=== PATIENT | female | born 1980 | race Caucasian/White ===

== ENCOUNTER 2020-07-13 08:29 | Day surgery (SDC) | payer MEDICAID ==
[2020-07-06 15:19] LABS: CLARITY,URINE SLIGHTLY CLOUDY (Clear); COLOR,URINE YELLOW (Yellow); GLUCOSE, URINE NEGATIVE (Neg); KETONES,URINE NEGATIVE (Neg); LEUKOCYTE ESTERASE ,URINE NEGATIVE (Neg); NITRITES, URINE NEGATIVE (Neg); OCCULT BLOOD,URINE NEGATIVE (Neg); PROTEIN,URINE NEGATIVE (Neg); UROBILINOGEN,URINE 0.2 E.U/dL (0.2-1.0)
[2020-07-06 15:26] LABS: BASOPHILS # (AUTO) 0.1 X10'3 (0-0.2); BASOPHILS % (AUTO) 0.6 % (0-1); EOSINOPHILS # (AUTO) 0.2 X10'3 (0-0.9); EOSINOPHILS % (AUTO) 1.5 % (0-6); LYMPHOCYTES # (AUTO) 4.1 X10'3 (1.1-4.8); LYMPHOCYTES % (AUTO) 25.5 % (21-51); MEAN CORPUSCULAR HEMOGLOBIN 31.9 PG (27.0-31.0); MEAN CORPUSCULAR HGB CONC 33.7 g/dL (33.0-36.5); MEAN CORPUSCULAR VOLUME 94.7 FL (78-98); MEAN PLATELET VOLUME 8.8 FL (7.4-10.4); MONOCYTES # (AUTO) 1.1 X10'3 (0-0.9); MONOCYTES % (AUTO) 6.8 % (2-12); NEUTROPHILS # (AUTO) 10.6 X10'3 (1.8-7.7); NEUTROPHILS % (AUTO) 65.6 % (42-75); PRE OP HEMATOCRIT 46.4 % (35.0-45.0); PRE OP HEMOGLOBIN 15.6 g/dL (12.0-16.0); PRE OP PLATELET COUNT 249 X10'3 (140-440); RED CELL DISTRIBUTION WIDTH 13.6 % (11.5-14.5)
[2020-07-06 15:30] LABS: UA COLLECTION TYPE CLN CATCH MIDSTREAM
[2020-07-06 15:38] LABS: ALBUMIN 3.9 G/DL (3.4-5.0); ALKALINE PHOSPHATASE 81 IU/L (46-116); BLOOD UREA NITROGEN 15 MG/DL (7-18); BUN/CREATININE RATIO 14.9 (6.6-38.0); CALCIUM 9.5 MG/DL (8.5-10.1); CHLORIDE 104 MMOL/L (99-107); CREATININE 1.01 MG/DL (0.40-0.90); PRE OP ALT 31 U/L (30-65); PRE OP ANION GAP 8 (8-16); PRE OP AST 13 U/L (10-37); PRE OP BILIRUB, TOTAL 0.2 MG/DL (0.0-1.0); PRE OP GLUCOSE 81 MG/DL (70-104); PRE OP POTASSIUM 4.1 MMOL/L (3.4-5.1); PRE OP SODIUM 140 MMOL/L (135-145); TOTAL CARBON DIOXIDE 27.6 MMOL/L (24-32); TOTAL PROTEIN 7.7 G/DL (6.4-8.2); eGFR 61 ML/MIN
[2020-07-06 15:42] LABS: SQUAMOUS EPITHELIAL CELL,UR FEW /LPF (FEW)
[2020-07-06 15:43] LABS: MUCUS STRANDS FEW /LPF (Neg); RBC,URINE NONE SEEN /HPF (0-2); WBC,URINE 0-4 /HPF (0-4)
[2020-07-06 15:45] LABS: HCG SERUM QL NEGATIVE
[2020-07-06 15:47] LABS: BACTERIA,URINE FEW /HPF (Neg)
[~2020-07-13] VITALS: Ht 177.8 cm; Wt 139.6 kg
[2020-07-13] VITALS (15 sets, daily range): BP systolic 95–131; BP diastolic 53–88
[~2020-07-13 08:29] MED LIST: ALBU8HFA PO; BACL20TA2 PO; TYL650S PO; albuterol 2.5 MG/3 ML nebule NEB ONE; ceFOXitin 2GM-NS 100mL ADDvant 100 ML IV ONE; famotidine 20mg tablet PO ONE; ringers solution, lacted 1,000 ML IV SCH
[2020-07-13] MEDS ORDERED: BUPIVAcaine/PF 2.5 mg/ml (0.25%) 30ml vial ONE (09:15)
[2020-07-13] MEDS ORDERED: ipratropium/albuterol 3ml nebule IH STA (09:25)
[2020-07-13] MEDS ORDERED: midazolam 1 mg/ML 2ml injection ONE (09:29)
[2020-07-13] MEDS ORDERED: fentaNYL/PF 50MCG/1 ML 2ML syringe ONE (09:29)
[2020-07-13] MEDS ORDERED: rocuronium 10mg/ml inj IV ONE (09:32)
[2020-07-13] MEDS ORDERED: LIDOcaine 2% (20mg/ml) 5ml vial ONE (09:32)
[2020-07-13] MEDS ORDERED: propofol inj 20 ML IV ONE (09:32)
[2020-07-13] MEDS ORDERED: dexamethasone sod phosphate 4mg/ml inj. ONE (09:33)
[2020-07-13] MEDS ORDERED: ipratropium/albuterol 3ml nebule ONE (09:38)
[2020-07-13] MEDS ORDERED: morphine 4 MG/ML inj SYRINge IV PRN (10:55)
[2020-07-13] MEDS ORDERED: meperidine/PF 25mg/ml syringe IV PRN ×3 (10:55)
[2020-07-13] MEDS ORDERED: ringers solution, lacted 1,000 ML IV SCH (10:55)
[2020-07-13] MEDS ORDERED: proCHLORperazine 10 MG/2 ml inj IV PRN (10:55)
[2020-07-13] MEDS ORDERED: ondansetron/PF 4mg/2ml inj IV PRN (10:55)
[2020-07-13] MEDS ORDERED: morphine 2 MG/ML inj. syringe IV PRN (10:55)
[2020-07-13] MEDS ORDERED: meperidine/PF 25mg/ml syringe ONE (11:30)
--- NOTE | 2020-07-13 11:30 | NUR ---
Received from OR via , accompanied by Anesthesiologist DR TEJADA and report given by Anesthesiolgist. AWAKENS BRITNI VOICE. VITALS STABLE. DEEPIKA PAIN.
[2020-07-13] MEDS ORDERED: glycopyrrolate 0.2mg/ml inj ONE (11:41)
[2020-07-13] MEDS ORDERED: neostigmine methylsulfate 1 MG/ML 10ml vial ONE (11:41)
[2020-07-13] MEDS ORDERED: ondansetron/PF 4mg/2ml inj ONE (11:41)
[2020-07-13] MEDS ORDERED: acetaminophen 1,000mg/100ml IV 100 ML IV ONE (12:05)
--- NOTE | 2020-07-13 14:00 | NUR ---
AWAKE AND ORIENTED. VITALS STABLE. STATES PAIN IMPROVING. HOME WITH HER SPOUSE AT THIS TIME.
== END 2020-07-13 13:33 | disposition home or self-care (01) ==
LOC: PAS 08:29
PROVIDERS: ATTEND Obstetrics & Gynecology Obstetrics
DX: Z30.2 Encounter for sterilization (principal); Z30.46 Encounter for surveillance of implantable subdermal contraceptive; Z20.822 Contact with and (suspected) exposure to COVID-19; M19.90 Unspecified osteoarthritis, unspecified site; J45.909 Unspecified asthma, uncomplicated; E11.9 Type 2 diabetes mellitus without complications; F17.210 Nicotine dependence, cigarettes, uncomplicated; E66.01 Morbid (severe) obesity due to excess calories; Z68.41 Body mass index [BMI] 40.0-44.9, adult; Z79.899 Other long term (current) drug therapy; Z88.5 Allergy status to narcotic agent; Z82.61 Family history of arthritis; Z84.1 Family history of disorders of kidney and ureter; Z83.3 Family history of diabetes mellitus; Z82.5 Family history of asthma and other chronic lower respiratory diseases
CPT/HCPCS: 11982; 36415; 58671; 71046; 80053; 81001; 82948; 84703; 85025; 86885; 86900; 86901; 93005; 94640; 94760; A4264; J0131; J0694; J1100; J2001; J2175; J2250; J2270; J2405; J2704; J2710; J3010; J3490; U0003; 87635; A4618; J7120